=== PATIENT | female | born 1975 | race Two or more races ===

== ENCOUNTER 2024-02-06 17:56 | Emergency (ER) | payer OTHER ==
[2024-02-06] MEDS ORDERED: Methocarbamol 1 GM (10 mL) VIAL ONE (18:32)
[2024-02-06] MEDS ORDERED: Lidocaine 4% Patch ONE (18:32)
[2024-02-06] MEDS ORDERED: Ketorolac Tromethamine 30 MG (1 mL) VIAL ONE (18:32)
[2024-02-06] MEDS ORDERED: Acetaminophen 325 MG TAB ONE (19:15)
[2024-02-06] MEDS ORDERED: HYDROcodone/Acetaminophen 10/325 mg Tablet ONE (19:16)
== END 2024-02-06 20:50 | disposition home or self-care (01) ==
LOC: MADERS 17:56
DX: S32.019A Unspecified fracture of first lumbar vertebra, initial encounter for closed fracture (principal); S32.059A Unspecified fracture of fifth lumbar vertebra, initial encounter for closed fracture; V49.50XA Passenger injured in collision with unspecified motor vehicles in traffic accident, initial encounter; Y92.828 Other wilderness area as the place of occurrence of the external cause
CPT/HCPCS: 72131; 96365; 96375; J1885; J2800